=== PATIENT | male | born 1995 | race Caucasian/White ===

== ENCOUNTER 2022-04-29 11:02 | Emergency (ER) | payer SELFPAY ==
[~2022-04-29] VITALS: Ht 170.2 cm; Wt 85.0 kg
[2022-04-29 11:50] LABS: Basophils # (auto) 0 10 ^3/uL (0-0.2); Basophils % (auto) 0.7 % (0.0-2.0); Eosinophils # (auto) 0.1 10 ^3/uL (0-0.8); Eosinophils % (auto) 3.1 % (0.0-7.0); Hematocrit 48.5 % (41.0-53.0); Hemoglobin 16.3 g/dL (13.5-17.5); Lymphocytes # (auto) 1.8 10 ^3/uL (0.4-5.4); Lymphocytes % (auto) 42.5 % (10.0-50.0); Mean Corpuscular Hemoglobin 30.4 pg (28.0-32.0); Mean Corpuscular Hgb Conc. 33.6 g/dL (32.0-36.0); Mean Corpuscular Volume 90.4 fL (80.0-100.0); Monocytes # (auto) 0.4 10 ^3/uL (0-1.3); Monocytes % (auto) 9.2 % (0.0-12.0); Neutrophils # (auto) 1.8 10 ^3/uL (1.6-8.6); Neutrophils % (auto) 44.5 % (37.0-80.0); Nucleated Red Blood Cells % 0.1 %; Red Blood Cells 5.36 10^6/uL (4.5-5.90); Red Cell Distribution Width 12.4 % (11.8-14.3); White Blood Cell 4.1 10^3/uL (4.4-10.8)
[2022-04-29 12:11] LABS: Potassium 3.8 mmol/L (3.5-5.1)
[2022-04-29 12:15] LABS: Albumin 4.2 g/dL (3.4-5.0); Calcium 8.9 mg/dL (8.5-10.1)
[2022-04-29 12:16] LABS: Bilirubin, Total 0.7 mg/dL (0.2-1.0); Total Protein 7.4 g/dL (6.4-8.2)
[2022-04-29 20:15] VITALS: BP 126/70
== END 2022-04-29 20:53 | disposition home or self-care (01) ==
LOC: ER 11:02
DX: R07.89 Other chest pain (principal)
CPT/HCPCS: 36415; 80053; 84484; 85025; 85379; 93005

== ENCOUNTER 2022-05-06 14:54 | Emergency (ER) | payer SELFPAY ==
[~2022-05-06] VITALS: Ht 172.7 cm; Wt 57.5 kg
[2022-05-06 16:42] VITALS: BP 125/78
[2022-05-06] MEDS ORDERED: AZIT250T8 PO (16:50)
[2022-05-06] MEDS ORDERED: LIDO2SOL23 MT (16:50)
== END 2022-05-06 17:03 | disposition home or self-care (01) ==
LOC: ER 14:54
DX: J03.90 Acute tonsillitis, unspecified (principal)